=== PATIENT | female | born 1960 | race Caucasian/White ===

== ENCOUNTER 2024-07-06 21:49 | Emergency (ER) | payer OTHER, SELFPAY ==
[2024-07-06 21:51] VITALS: BMI 19.5
[2024-07-06 22:09] VITALS: BP 150/73; PULSE 98; RESP 20; TEMP 36.8; O2SAT 98
--- NOTE | 2024-07-06 22:18 | XR_ITS ---
Examination: Duplex scan of the upper extremity, unilateral left Date and time of exam: July 06, 2024 1053 hrs. Indications: Left arm swelling tenderness and pain beginning 4 days ago Technique: Duplex scan of the extremity veins using B-mode/grayscale imaging and Doppler spectral analysis and color flow Attention is directed to internal echogenicity, compression and augmentation involving these veins, color flow assessment, spectral analysis Findings: Major deep venous structures in the extremity demonstrate normal course and caliber. There is no evidence of deep vein thrombosis. Normal color flow and spectral analysis Impression: Negative for DVT..
--- NOTE | 2024-07-06 22:18 | PD.EDRME ---
Rapid Medical Screening Exam RME Arrival date/time: 07/06/24 21:49 63F with history of breast cancer presents to ED with several days of LUE swelling/pain w/o fall/trauma. Patient requests some blood work since she hasn't had any in a year. Patient also requests XR of L hand/wrist due to previous fx that occurred w/o fall/trauma; ortho states likely from chemo treatment. Chief Complaint: Extremity Injury, Upper Vital signs: Vital Signs Temperature 98.2 F 07/06/24 22:09 Pulse Rate 98 07/06/24 22:09 Respiratory Rate 20 07/06/24 22:09 Blood Pressure 150/73 H 07/06/24 22:09 Pulse Oximetry (%) 98 07/06/24 22:09 Oxygen Delivery Method Room Air 07/06/24 22:09
--- NOTE | 2024-07-06 22:28 | XR_ITS ---
Examination: Hand, left 3 views Technique: Hand AP, oblique, lateral 3 views Date and time of exam: July 06, 2024 1035 hrs. Indications: Hand swelling beginning 4 days ago Findings: Severe osteopenia No acute fracture No dislocation No cortical bone destruction Impression: No acute fracture
--- NOTE | 2024-07-06 22:28 | XR_ITS ---
Examination: Wrist, left 3 views Technique: Wrist AP, oblique, lateral 3 views Date and time of exam: July 06, 2024 10:35 PM Indications: Swelling in the wrist beginning 4 days ago, breast carcinoma diagnosis Impression: Severe osteopenia No fracture or dislocation No cortical bone destruction Impression: No acute fracture
[2024-07-06 23:40] LABS: Basophils # (Auto) 0.1 Thou/mm3 (0.0-0.2); Basophils % (Auto) 1 % (0-2.5); Eosinophils # (Auto) 0.2 Thou/mm3 (0.0-0.5); Eosinophils % (Auto) 1 % (0-10); Hematocrit 25.2 % (36.0-46.0); Immature Granulocytes % (Auto) 1 % (0-0); Immature Granulocytes Auto 0.05 Thou/mm3 (0.00-0.00); Lymphocytes # (Auto) 2.8 Thou/mm3 (1.0-4.8); Lymphocytes % (Auto) 27 % (10-50); Mean Corpuscular HGB Conc 29.8 g/dl (31.0-37.0); Mean Corpuscular Hemoglobin 23.7 pg (25.0-35.0); Mean Corpuscular Volume 80 fL (80-100); Monocytes % (Auto) 10 % (0-12); Neutrophils # (Auto) 6.4 Thou/mm3 (1.8-7.7); Neutrophils % (Auto) 61 % (37-80); Nucleated Red Blood Cell % 0 /100 WBC (0); Platelet Count 467 Thou/mm3 (140-440); RDW Standard Deviation 53.9 fL (36.4-46.3); Red Blood Count 3.16 Miln/mm3 (4.00-5.20); White Blood Count 10.4 Thou/mm3 (3.6-11.0)
[2024-07-06 23:42] LABS: Hemoglobin 7.5 g/dL (12.0-16.0)
[2024-07-06 23:56] LABS: INR 1.1 (0.9-1.3); Partial Thromboplastin Time 33.2 Seconds (22.0-36.0); Prothrombin Time 11.6 Seconds (9.0-12.2)
[2024-07-07] LABS: Alanine Aminotransferase 13 U/L (10-49); Albumin, Serum 4.7 gm/dL (3.4-4.8); Albumin/Globulin Ratio 1.4 (1.2-2.2); Alkaline Phosphatase 174 U/L (46-116); Anion Gap 9 (7-16); Aspartate Amino Transferase 25 U/L (0-34); BUN/Creatinine Ratio 26 Ratio (12-20); Bilirubin,Total 0.3 mg/dL (0.3-1.2); Blood Urea Nitrogen 26 mg/dL (9-23); Calcium 9.9 mg/dL (8.3-10.6); Calcium (Corrected) 9.9 mg/dL (8.5-10.1); Carbon Dioxide 26.9 mMol/L (20.0-31.0); Chloride 99 mMol/L (98-107); Estimated Creatinine Clearance 45.9 mL/min (>60); Globulin 3.4 gm/dL (2.3-3.5); Glucose 100 mg/dL (74-106); Osmolality,Calculated 274 (275-295); Potassium 4.3 mMol/L (3.4-5.1); Sodium 135 mMol/L (136-145); Total Protein 8.1 gm/dL (5.7-8.2); eGFR > 60 See Note
--- NOTE | 2024-07-07 00:36 | EDNOTE_ITS ---
Upper Extremity Injury RME/HPI General Chief Complaint: Extremity Injury, Upper Stated Complaint: LEFT ARM SWELLING X4 DAYS. Time Seen by Provider: 07/07/24 00:36 Arrival date/time: 07/06/24 21:49 RME / HPI RME / HPI narrative: 07/06/24 21:49 63F with history of breast cancer presents to ED with several days of LUE swelling/pain w/o fall/trauma. Patient requests some blood work since she hasn't had any in a year. Patient also requests XR of L hand/wrist due to previous fx that occurred w/o fall/trauma; ortho states likely from chemo treatment. Dr. Mata?s Main ED Evaluation: 63yo female with a history of breast cancer s/p left mastectomy (05/26/23) presents to the ED for a chief complaint of swelling to her LUE. Patient states she's had swelling to her left arm since 06/30/24, reporting she elevated it 2 days later and woke up with less swelling from the wrist to the mid-forearm, but not the rest of the arm. She states I finally felt well enough to come to the ED . She denies any fever, chills or any other associated symptoms. Denies any tobacco or alcohol use. Related Data Home Medications ?Medication ?Instructions ?Recorded ?Confirmed levonorgestrel-ethinyl estradiol 1 tab PO QDAY 03/06/21 03/06/21 0.1 mg-20 mcg tablet (Vienva) Allergies Allergy/AdvReac Type Severity Reaction Status Date / Time scopolamine Allergy Severe GI UPSET/ Unverified 07/02/23 15:12 DIZZY/ Review of Systems Review of Systems Systems Reviewed: All systems reviewed, normal except as documented Past Medical History Past Medical History CARDIAC: Negative Congestive Heart Failure RESPIRATORY: Positive Bronchitis (YEARS AGO); Negative Chronic Obstructive Pulmonary Disease (COPD) GASTROINTESTINAL: Positive Ulcer and Irritable Bowel (ON NO MEDICATIONS) GENITOURINARY: Positive Genitourinary Disorders (OVERACTIVE BLADDER); Negative Renal Disease REPRODUCTIVE: Positive Previous Pregnancies (A2) MUSCULOSKELETAL: Positive Arthritis (DEGENERATIVE ARTHRITIS) ENDOCRINE: Negative Diabetes Mellitus Type 1 or Diabetes Mellitus Type 2 HEMATOLOGIC: Positive Anemia (IRON SUPPLEMENTS) PSYCHO/SOCIAL: Positive Anxiety and Attention Deficit Disorder (DOESN'T TAKE MEDICATION) OTHER HISTORY: Positive Hospitalization and Chicken Pox Family History FAMILY HISTORY: Positive Family Respiratory Disorders (BROTHER(COPD)), Family Cardiac Disorders (FATHER), Family Gastrointestinal Problems (SISTER) and Family Cancer (LIP CA(FATHER)) Surgical History SURGICAL: Positive Ear Surgery (R EAR 2009([facility]JA)), Eye Surgery (L EYE SURGERY 2009([facility])) and Joint Replacement (L BUNIONECTOMY(2008)) Social History SMOKING STATUS: Never smoker ED Exam Narrative Physical exam: GENERAL APPEARANCE: alert and oriented x 4, well-developed, well-nourished, no acute distress VITALS: All vitals were reviewed and the pulse ox is 98% on room air, which is normal according to my interpretation. HEENT: Normocephalic, atraumatic; pupils equal, round, reactive to light; EOMI; mucous membranes pink, moist; oropharynx clear NECK: Supple LUNGS: CTABL; no wheezes, no rales, no rhonchi HEART: Regular rate, regular rhythm; normal S1, S2; no murmurs ABDOMEN: non distended; normal BS; soft, no tenderness, no guarding, no rebound; no masses, no organomegaly, no hernia BACK: no CVA tenderness EXTREMITIES: atraumatic; mild pitting edema to the elbow up to the shoulder of the LUE; swan neck to the 3rd and 4th fingers of the left hand; NEUROLOGIC: awake; alert and oriented x4; cranial nerves II-XII grossly intact; no focal sensory or motor deficits PSYCHIATRIC: appropriate mood and affect SKIN: warm, dry, normal color; no rashes Course Quality Measures none Orders Category Date Time Status US venous doppler UE LT Stat Exams 07/06/24 22:18 Completed XR hand comp LT min 3V Stat Exams 07/06/24 22:28 Completed XR wrist comp LT min 3V Stat Exams 07/06/24 22:28 Completed CBC Stat Lab 07/06/24 23:34 Completed CMP [Comprehensive Metabolic Panel] Stat Lab 07/06/24 23:34 Completed INR [Prothrombin Time with INR] Stat Lab 07/06/24 23:34 Completed PTT [Partial Thromboplastin Time] Stat Lab 07/06/24 23:34 Completed Vital Signs Vital signs: Vital Signs Temperature 98.2 F 07/06/24 22:09 Pulse Rate 98 07/06/24 22:09 Respiratory Rate 20 07/06/24 22:09 Blood Pressure 150/73 H 07/06/24 22:09 Pulse Oximetry (%) 98 07/06/24 22:09 Oxygen Delivery Method Room Air 07/06/24 22:09 Extremity Injury MDM Narrative MDM Narrative:: Scribe Attestation: 07/07/24 Demetria Mcneill am scribing for and in the presence of Dr. Mata. Patient data External records reviewed:: [facility] previous records (Per chart review, patient has no relevant previous ED visits.) Clinical information provided by:: patient Social determinants that could affect healthcare access:: none Patient has the following chronic illnesses:: breast cancer s/p left mastectomy How is presenting disease/condition affected by chronic disease/condition?: caused by Evaluation data The following diagnostics were reviewed and interpreted by me:: lab results and radiology exam(s) Lab and/or radiology exams considered but not ordered:: none Interpretation Summary: WBC count is normal, HnH is stable, CMP is normal, according to my interpretation. ---- [facility] Report Signed Patient: FRIEDA RAHMAN [employer] Record#: [id number] Birthdate: 1960 Age/Sex: 63 / F Location: [facility] Attending Dr: Ordering Physician: Chris Wong PA-C Date of Service: 07/06/24 Procedure(s): XR wrist comp LT min 3V Accession Number(s): [id number] cc: aJrod Alvarez MD; Chris Wong PA-C~ Examination: Wrist, left 3 views Technique: Wrist AP, oblique, lateral 3 views Date and time of exam: July 06, 2024 10:35 PM Indications: Swelling in the wrist beginning 4 days ago, breast carcinoma diagnosis Impression: Severe osteopenia No fracture or dislocation No cortical bone destruction Impression: No acute fracture Dictated By: Jarod Alvarez MD Signed By: <Electronically signed by Jarod Alvarez MD in [place]> 07/06/24 2329 [facility] Report Signed Patient: FRIEDA RAHMAN [employer] Record#: [id number] Birthdate: 1960 Age/Sex: 63 / F Location: [facility] Attending Dr: Ordering Physician: Chris Wong PA-C Date of Service: 07/06/24 Procedure(s): XR hand comp LT min 3V Accession Number(s): [id number] cc: Jarod Alvarez MD; Chris Wong PA-C~ Examination: Hand, left 3 views Technique: Hand AP, oblique, lateral 3 views Date and time of exam: July 06, 2024 1035 hrs. Indications: Hand swelling beginning 4 days ago Findings: Severe osteopenia No acute fracture No dislocation No cortical bone destruction Impression: No acute fracture Dictated By: Jarod Alvarez MD Signed By: <Electronically signed by Jarod Alvarez MD in [place]> 07/06/242327 -------- [facility] Report Signed Patient: FRIEDA RAHMAN Record#: [id number] Birthdate: 1960 Age/Sex: 63 / F Location: [facility] Attending Dr: Ordering Physician: Chris Wong PA-C Date of Service: 07/06/24 Procedure(s): US venous doppler UE LT Accession Number(s): [id number] cc: Jarod Alvarez MD; Chris Wong PA-C~ Examination: Duplex scan of the upper extremity, unilateral left Date and time of exam: July 06, 2024 1053 hrs. Indications: Left arm swelling tenderness and pain beginning 4 days ago Technique: Duplex scan of the extremity veins using B-mode/grayscale imaging and Doppler spectral analysis and color flow Attention is directed to internal echogenicity, compression and augmentation involving these veins, color flow assessment, spectral analysis Findings: Major deep venous structures in the extremity demonstrate normal course and caliber. There is no evidence of deep vein thrombosis. Normal color flow and spectral analysis Impression: Negative for DVT.. Dictated By: Jarod Alvarez MD Signed By: <Electronically signed by Jarod Alvarez MD in [place]> 07/06/242325 Medications / Prescriptions Medications or Prescriptions considered but not ordered:: none Medication administrations:: none Consultations Consultation(s) initiated? (list below): No Diagnosis Upper Extremity Injury Differential Diagnosis: other (DVT, arterial occlusion, cellulitis, fracture) Most likely diagnosis given after review of the tests above:: see below Admission Indicated Admission indicated?: not indicated Admission Request Was there a request for admission?: No Disposition Plan Disposition Plan: Discharge Discharge Attestation Discharge Attestation: The patient and all family members were given an opportunity to ask questions and understood the discharge instructions. Discharge instructions specifically effects, indications for sooner follow up or return to the emergency department, and the expected course of current diagnosis. Patient condition: Stable Discharge Plan Plan Patient Disposition: HOME (Self Care) Disposition Comment: Stable for discharge Patient condition on transfer: Stable Prescriptions/Referrals Prescriptions/Med Rec: No Action levonorgestrel-ethinyl estrad [Vienva] 0.1-20 mg-mcg Tablet 1 tab PO QDAY Problem List Clinical Impression: Edema Patient/Caregiver Discharge Instructions Discharge Activity: activity as tolerated Education Materials: ED Lymphedema Additional Instructions: Please return to the emergency department if you notice any worsening or if you have any further medical problems You should follow-up with your primary care doctor within the next several days Print Language: Greenlandic Stand Alone Forms: [employer] Award Info., Patient Portal Info Letter
[2024-07-07 01:22] VITALS: BP 147/64; PULSE 78; RESP 18; TEMP 37.1; O2SAT 99
== END 2024-07-07 01:22 | disposition home or self-care (01) ==
LOC: SERX 07-07 01:20
PROVIDERS: Physician Assistant; Emergency Provider Emergency Medicine; PCP Internal Medicine Hematology & Oncology
DX: R60.1 Generalized edema (principal)
CPT/HCPCS: 36415; 73110; 73130; 80053; 85025; 85610; 85730; 93971; 99284